=== PATIENT | male | born 1960 | race Caucasian/White ===

== ENCOUNTER 2017-03-11 14:25 | Emergency (ER) | payer SELFPAY ==
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
== END 2017-03-11 15:30 | disposition home or self-care (01) ==
LOC: ER 14:25
DX: S61.210A Laceration without foreign body of right index finger without damage to nail, initial encounter (principal); S61.412A Laceration without foreign body of left hand, initial encounter; S50.812A Abrasion of left forearm, initial encounter; S50.811A Abrasion of right forearm, initial encounter; V89.2XXA Person injured in unspecified motor-vehicle accident, traffic, initial encounter